=== PATIENT | female | born 1970 | race Caucasian/White ===

== ENCOUNTER 2017-02-03 10:54 | Emergency (ER) | payer OTHER ==
[~2017-02-03] VITALS: Ht 165.1 cm; Wt 97.7 kg
[~2017-02-03 10:54] MED LIST: HYDR50CA3 PO; OLAN10TA5 PO; QUET25TA73 PO
[2017-02-03 11:02] VITALS: BP 155/100; PULSE 102; RESP 18; O2SAT 99
--- NOTE | 2017-02-03 11:45 | ED.REPORT ---
HPI-Psychiatric Illness Date of Service February 03, 2017 ED Provider: Mukund Richmond PA-C A 46-year-old female with a history of bipolar disorder brought in by EMS at the request of her out of concern for escalating behavior. Patient states "everything is so confusing right now." Patient speaks about questioning the nature of understanding reality, understanding stresses placed on her by Society and her family. States "I have been thinking too much to drink." The patient's states that he does not think she has been sleeping a significant amount for the last 6 days and complains of escalating agitation, yelling, throwing things. She has a history of hospitalization and manic episodes. Patient states that she does not believe she is having manic episodes now and that she is in fact sleeping 5-6 hours a night. Patient states that "I have been taking the medication. My does not think that I am though." She does not believe she needs to be at the hospital, and desires no treatment. She denies suicidal ideation, homicidal ideation, auditory/visual hallucinations. Denies drug/alcohol use, suicide by close contacts, access to firearms. She has no physical complaints. Nursing Notes Stated Complaint: psychosis Chief Complaint: Psychiatric Complaint Nursing Notes Reviewed: Yes Allergies: Coded Allergies: No Known Allergies (Unverified , 04/11/16) Scheduled Olanzapine ODT (Zyprexa Zydis) 10 Mg Tablet 10 MG PO HS Quetiapine Fumarate (Quetiapine Fumarate) 25 Mg Tablet 25 MG PO BID Scheduled PRN Hydroxyzine Pamoate (HydrOXYzine Pamoate) 50 Mg Capsule 50 MG PO Q4H PRN PRN FOR ANXIETY,AGIT, OR INSOMNIA Temazepam (Temazepam) 15 Mg Capsule 15 MG PO HS PRN PRN For Insomnia General Time Seen by MD: 11:03 Chief Complaint Confused Risk-Psychiatric Illness Suicide Risk Stratification Suicide Risk Factors - Adult: : Prior psych admissionNo: Access to firearms, Alcohol use, Close associate suicide, Family Hx of Suicide, Previous attempt, Substance abuse RF Statements: Risk factors reviewed Past Medical History Past Medical History none reported Past Surgical History none reported Family History Father: bipolar disorder Smoking History Never Smoker Social History Alcohol Use: Denies alcohol use Drug Use: Denies drug use Other Social History: Ambulatory Status Independent Review of Systems General: Denies fever, chills, malaise. HEENT: Denies congestion, headache, sore throat. Respiratory: Denies dyspnea, cough, shortness of breath, wheezing. Cardiovascular: Denies chest pain, palpitations. Gastrointestinal: Denies vomiting, diarrhea, abdominal pain. Genitourinary: Denies frequency, urgency, dysuria, hematuria. Otherwise as noted in HPI. Physical Exam General: Well appearing, well developed, well nourished, no acute distress. Head: Atraumatic, normocephalic. No mastoid tenderness. Eyes: No scleral icterus or injection. No discharge. PERRL. Vision grossly intact. Ears: Pinna and tragus nontender with manipulation. External auditory canal patent, atraumatic and without discharge. Tympanic membrane sin, shiny and translucent without fluid, bulging, retraction or perforation. Hearing grossly intact. Nose: Symmetrical, nares patent without discharge. No frontal or maxillary sinus tenderness. Mouth/pharynx: normal dentition, mucus membranes moist. Tonsils 2+ and symmetrical, uvula midline. Pharynx noninjected, no cobblestoning or discharge. Voice clear. Neck: No tenderness or lymphadenopathy. Trachea midline. Respiratory: Regular rate and rhythm. Breath sounds present, clear to auscultation and equal bilaterally. No respiratory distress. No increased work of breathing, speaks in complete sentences. Cardiovascular: Regular rate and rhythm, without murmur, gallop or rub. No pedal edema. Gastrointestinal: Abdomen flat and non-tender without guarding or rebound. Bowel sounds normoactive. Skin: Warm and dry. Neurological: Normal heel-sanches, rapid hand. Negative pronator drift. Patient will participate in only one round of finger-nose, with her left hand. This is normal. Cranial nerves: Vision grossly intact, PERRL, EOMI. Facial motion symmetrical, sensation to light touch over forehead, maxilla and mandible present and equal B /L. Voice clear and fluent, no drooling/pooling of saliva, uvula rises midline. Psychological: Alert and oriented. Speech is slightly pressured, rambling and tangential. Throughout history and physical she is slowly tearing apart demographic information stickers and sticking them on her legs. She states that looking at the bar codes soothing for her. Initial Vital Signs Vital Signs (First) Date Time Temp Pulse Resp B/P Pulse Ox O2 Delivery O2 Flow Rate FiO2 5/13/17 11:02 36.8 102 18 155/100 99 02/03/17 13:23 Room Air Initial VS: Vital signs abnormal (mild tachycardia, elevated blood pressure.) Interpretation & Diagnostics Lab Results Interpretation Result Diagram: 02/03/17 1217 02/03/17 1217 Test 02/03/17 12:17 White Blood Count 7.1th/mm3 (3.8-10.1) Red Blood Count 4.66mil/mm3 (3.90-5.20) Hemoglobin 13.0g/dL (12.0-15.6) Hematocrit 38.8% (35.0-46.0) Mean Corpuscular Volume 83.3fL (81-100) Mean Corpuscular Hemoglobin 27.9pg (27.0-35.0) Mean Corpuscular Hemoglobin Concent 33.5% (32.0-37.0) Red Cell Distribution Width 12.7% (12.3-15.4) Platelet Count 267bil/L (150-400) Neutrophils (%) (Auto) 69.3% (40-74) Lymphocytes (%) (Auto) 22.3% (14-46) Monocytes (%) (Auto) 6.9% (4-12) Eosinophils (%) (Auto) 1.1% (0-5) Basophils (%) (Auto) 0.3% (0-3) Sodium Level 142mEq/L (134-144) Potassium Level 3.3mEq/L (3.5-5.2) Chloride Level 101mEq/L (97-108) Carbon Dioxide Level 24mmol/L (18-29) Blood Urea Nitrogen 16mg/dL (6-24) Creatinine 0.47mg/dL (0.57-1.00) Estimat Glomerular Filtration Rate 203mL/min (>59) Glucose Level 119mg/dL (60-99) Calcium Level 9.9mg/dL (8.5-10.1) Total Bilirubin 0.9mg/dL (0.0-1.2) Aspartate Amino Transf (AST/SGOT) 21U/L (0-50) Alanine Aminotransferase (ALT/SGPT) 26U/L (0-32) Alkaline Phosphatase 54U/L (25-150) Total Protein 7.6g/dL (6.4-8.4) Albumin 4.7g/dL (3.4-5.0) Thyroid Stimulating Hormone (TSH) 0.744uIU/mL (0.450-4.500) Re-Eval/Medical Decision Med Decision/Clinical Course 46-year-old woman with a history of bipolar disorder brought in by EMS at the request of her after 6 days reduced sleep, increased irritability, agitation. Physical examination, CBC, CMP reveal no medical instability. Patient's speech is mildly pressured, tangential but not completely unrelated to reality. Denies suicidal ideation, homicidal ideation, hallucination. After discussing the case with him and LILLIE Cook we agree she is not gravely disabled, a threat to herself or others. She does not wish to be admitted. Discharged to home with Plan for mental health follow-up, emergency return precautions. Provided a prescription for a small amount of temazepam with precautions. Patient and her verbalize understanding of and consent to the plan. Discharge & Departure Impression: Primary Impression: Hypomania )( Condition at Discharge: No danger to self, No danger to others, No suicidal ideation, No homicidal ideation Disposition: Home Discharge Condition All VS Reviewed: Yes Condition: Stable Additional Instructions: Evaluation for confusion and behavior changes in the emergency department consists of history, physical examination, urinalysis and blood work. These are all reassuring that her symptoms are not do to a medical condition. I believe this is a manifestation of your bipolar disorder him and you are currently in a hypomanic state. We do not believe the you are gravely disabled , a threat to yourself or others. We believe the you are safe to be discharged to home. I will write a prescription for a small amount of temazepam to be taken each night before bed to help you sleep. Take this medication instead of your additional dose of Seroquel. Do not take this medication with alcohol. Continue taking your scheduled dose of Seroquel. Please follow up with Vivien Grossman early next week. Return to emergency department for any new or worsening symptoms including thoughts of harming yourself or others, visual/auditory hallucinations. Referrals: OTHER,PHYSICIAN Vivien Grossman NP EDSupervising Provider for APC: Christian Andrews MD,Mukund LANCASTER February 03, 2017 11:45
[2017-02-03 12:22] LABS: BASOPHILS % (AUTO) 0.3 % (0-3); EOSINOPHILS % (AUTO) 1.1 % (0-5); MONOCYTES % (AUTO) 6.9 % (4-12); Mean Corpuscular Hemoglobin 27.9 pg (27.0-35.0); Mean Corpuscular Volume 83.3 fL (81-100); NEUTROPHILS % (AUTO) 69.3 % (40-74); Platelet Count 267 bil/L (150-400)
[2017-02-03] MEDS ORDERED: RES15 PO (13:10)
[2017-02-03 13:23] VITALS: BP 155/94; PULSE 102; RESP 16; O2SAT 100
== END 2017-02-03 13:24 | disposition home or self-care (01) ==
LOC: SED 10:54
DX: F31.0 Bipolar disorder, current episode hypomanic (principal)